=== PATIENT | male | born 2000 | race Caucasian/White ===

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

== ENCOUNTER 2018-02-03 10:50 | Emergency (ER) | payer SELFPAY ==
[2018-02-03 10:59] VITALS: TEMP 98.7
[2018-02-03] MEDS ORDERED: ALPRAZolam 0.25 MG TAB PO ONE (11:03)
--- NOTE | 2018-02-03 11:59 | ED.PDOC ---
History of Present Illness - General Chief Complaint: General Stated Complaint: Increased work of breathing, chest discomfort Time Seen by Provider: 02/03/18 11:01 Source: patient Exam Limitations: no limitations - History of Present Illness Initial Comments: Patient presents with shaking, dyspnea, and chest pain. He does not have a cardiac history or asthma. He says that his fiancee left him yesterday and took the kids. He has been under a lot of stress lately. This weekend, he drank enough alcohol to pass out. He denies using recreational drugs but he does smoke cigarettes. He denies having a history of seizures or syncope but says that he has "passed out" three times in the last two days. He was at work this morning when the shaking started. No other complaints. Timing/Duration: 1-3 hours Severity: moderate Improving Factors: nothing Worsening Factors: nothing Associated Symptoms: syncope Allergies/Adverse Reactions: Allergies NO KNOWN ALLERGY Allergy (Verified 02/03/18 10:59) Review of Systems - Review of Systems Constitutional: States: no symptoms reported EENTM: States: no symptoms reported Respiratory: States: see HPI Cardiology: States: no symptoms reported Gastrointestinal/Abdominal: States: no symptoms reported Genitourinary: States: no symptoms reported Musculoskeletal: States: no symptoms reported Skin: States: no symptoms reported Neurological: States: see HPI Endocrine: States: no symptoms reported Hematologic/Lymphatic: States: no symptoms reported Past Medical History (General) - Patient Medical History Hx Seizures: No Hx Stroke: No Hx Dementia: No Hx Asthma: No Hx of COPD: No Hx Cardiac Disorders: No Hx Congestive Heart Failure: No Hx Pacemaker: No Hx Hypertension: No Hx Thyroid Disease: No Hx Diabetes: No Hx Gastroesophageal Reflux: No Hx Renal Disease: No Hx of HIV: No Hx MRSA: No Surgical History: tonsillectomy - Vaccination History Hx Influenza Vaccination: No Hx Pneumococcal Vaccination: No - Social History Hx Tobacco Use: Yes Hx Substance Use: Yes Family Medical History - Family History Mother Family History: Unknown Living Status: Still Living Physical Exam - Physical Exam General Appearance: Alert Eye Exam: bilateral normal Ears, Nose, Throat: normal ENT inspection Neck: non-tender, full range of motion, supple Respiratory: chest non-tender, lungs clear, normal breath sounds Cardiovascular/Chest: normal peripheral pulses, regular rate, rhythm, no edema Gastrointestinal/Abdominal: normal bowel sounds, non tender, soft Back Exam: normal inspection, no CVA tenderness Extremity: normal range of motion, non-tender, normal inspection Neurologic: outpatient surgery rn II-XII nml as tested, alert, normal mood/affect, oriented x 3, other - Patient has no motor nor sensory deficits except he feels that he has sensation better on the right than on the left foot upon my exam Skin Exam: normal color Lymphatic: no adenopathy Progress - Progress Progress: 02/03/18 13:08 Laboratory Tests 02/03/18 02/03/18 11:00 11:00 WBC 7.9 RBC 5.11 Hgb 15.2 Hct 43.9 MCV 86.0 MCH 29.7 MCHC 34.5 RDW 13.2 Plt Count 266 MPV 7.6 Absolute Neuts (auto) 5.10 Absolute Lymphs (auto) 2.00 Absolute Monos (auto) 0.60 Absolute Eos (auto) 0.00 Absolute Basos (auto) 0.10 Neutrophils % 64.9 Lymphocytes % 25.9 Monocytes % 7.9 Eosinophils % 0.6 L Basophils % 0.7 Sodium 138 Potassium 3.2 L Chloride 104 Carbon Dioxide 23 Anion Gap 14.2 BUN 12 Creatinine 0.94 BUN/Creatinine Ratio 12.8 Random Glucose 100 Serum Osmolality 275.5 Calcium 10.0 Total Bilirubin 0.6 AST 32 ALT 17 Alkaline Phosphatase 72 L Serum Total Protein 7.8 Albumin 4.9 Globulin 2.9 Albumin/Globulin Ratio 1.7 TSH 1.16 Thyroxine (T4) 8.70 Patient was given Xanax 0.5 mg po x one and calmed down significantly. Labs unremarkable. He was given a Banana bag x one for nutritional purposes. The staff spoke with his fiancee and it appeared that his episodes where he passed out was syncope and not a seizure as he had no unusual movements of the head or extremities and was only out for about 30 seconds. He came to completely lucid. He is currently getting psychosocial help. He denies suicidial or homicidal ideation. Patient was discharged with instructions to see his therapist as scheduled. - EKG/XRAY/CT CT Ordered: No CT Interpretation Call Back: No Departure - Departure Clinical Impression: Anxiety, Stress and adjustment reaction Disposition: Discharge to Home or Self Care Condition: Good Departure Forms: ED Discharge - Pt. Copy, Patient Portal Self Enrollment Diet: resume usual diet Activity: increase activity as tolerated Additional Instructions: Return to the E.R. if you feel the desire to hurt yourself or others. Today, you were given Xanax which is a benzodiazapine and it will show up on your urine drug test as that. See your regular counselor as scheduled.
[2018-02-03] MEDS ORDERED: POTASSIUM CHLORIDE 20 MEQ TAB PO ONE (12:01)
[2018-02-03] MEDS ORDERED: THIAMINE HCL INJ 100 MG/ML VIAL ONE ×2 (12:10→12:12)
[2018-02-03] MEDS ORDERED: MULTIPLE VITAMIN 10 ML VIAL ONE (12:12)
[2018-02-03] MEDS ORDERED: SODIUM CHLORIDE 0.9% 1000ML 1,000 ML ONE (12:12)
[2018-02-03] MEDS ORDERED: MULTIPLE VITAMIN INJ 10 ML, THIAMINE HCL INJ 100 MG in SODIUM CHLORIDE 0.9% 1000ML 1,00... IVS SCH (12:30)
[2018-02-03 13:20] VITALS: BP 127/54; O2SAT 98
== END 2018-02-03 13:21 | disposition home or self-care (01) ==
LOC: ER 10:50
DX: F41.9 Anxiety disorder, unspecified (principal); F43.9 Reaction to severe stress, unspecified; R07.9 Chest pain, unspecified; R55 Syncope and collapse; F17.210 Nicotine dependence, cigarettes, uncomplicated
CPT/HCPCS: 36415; 80053; 84436; 84443; 85025; J3411; J7030

== ENCOUNTER 2018-05-09 18:12 | Emergency (ER) | payer SELFPAY ==
[2018-05-09 18:23] VITALS: TEMP 99
[2018-05-09] MEDS ORDERED: cefTRIAXone SODIUM 1 GM in SODIUM CHL 0.9% 50ML MIN-BAG+ 50 ML IVPB ONE (18:26)
[2018-05-09] MEDS ORDERED: IPRATROPIUM/ALBUTEROL 3 ML VIAL NEB ONE (18:26)
--- NOTE | 2018-05-09 18:31 | ED.PDOC ---
History of Present Illness - General Chief Complaint: Respiratory Problem Stated Complaint: cough, congestion Time Seen by Provider: 05/09/18 18:25 Source: patient, EMS Exam Limitations: no limitations - History of Present Illness Initial Comments: patient comes in today via EMS for left-sided chest pain. Patient states he's been sick with cough and cold symptoms for the past 2 weeks. It has persistently worsened and now he is having some wheezing and left-sided chest pain. The first episode of chest pain happened a couple of days ago and was sharp, worse with deep inspiration, and lasted approximately 30 minutes to an hour. Patient states at that time his mom checked his blood pressure and the bottom number was very elevated to the point where the machine said he should go to the emergency room. Today patient had a similar feeling with sharp shooting chest pain on the left side of his chest wall that made him call 911 and the pain remains at this time. Patient states it's much worse with cough or deep inspiration. Patient has been having cough that is nonproductive. He' s had some subjective fever and chills. He has always been healthy and has no known cardiac history. Patient states he does smoke and has smoked since he was about 8 years old. 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 Patient has no known drug allergies. Patient smokes half a pack every couple of days. She has no family history of early cardiac disease although he is not sure how old his grandfather was when he began having strokes. Timing/Duration: getting worse Severity: moderate Activities at Onset: rest Possible Cause: other - see HPI Improving Factors: nothing Worsening Factors: other - cough and deep inspiration Associated Symptoms: chest pain, cough, fever, wheezing Respiratory Risk Factors: no cause identified Allergies/Adverse Reactions: Allergies NO KNOWN ALLERGY Allergy (Verified 02/03/18 10:59) Home Medications: Ambulatory Orders Albuterol Sulfate [Ventolin Hfa] 108 mcg IN TID #1 aer 05/09/18 Azithromycin [Zithromax Z-Dawit] 250 mg PO DAILY #6 tab 05/09/18 Review of Systems - Review of Systems Constitutional: States: chills, fever, weakness EENTM: States: nose pain, nose congestion. Denies: throat pain Respiratory: States: cough, short of breath, wheezing Cardiology: States: chest pain. Denies: edema, palpitations Gastrointestinal/Abdominal: States: no symptoms reported. Denies: abdominal pain, diarrhea, nausea, vomiting Genitourinary: States: no symptoms reported Musculoskeletal: States: no symptoms reported Skin: States: no symptoms reported Neurological: States: no symptoms reported Past Medical History (General) - Patient Medical History Hx Seizures: No Hx Stroke: No Hx Dementia: No Hx Asthma: No Hx of COPD: No Hx Cardiac Disorders: No Hx Congestive Heart Failure: No Hx Pacemaker: No Hx Hypertension: No Hx Thyroid Disease: No Hx Diabetes: No Hx Gastroesophageal Reflux: No Hx Renal Disease: No Hx of HIV: No Hx MRSA: No - Vaccination History Hx Influenza Vaccination: No Hx Pneumococcal Vaccination: No - Social History Hx Tobacco Use: Yes Hx Substance Use: Yes Family Medical History - Family History Mother Family History: Unknown Living Status: Still Living Physical Exam - Physical Exam General Appearance: Alert, Anxious, No apparent distress Eyes, Ears, Nose, Throat Exam: PERRL/EOMI, normal ENT inspection, TMs normal, pharyngeal erythema Neck: non-tender, full range of motion, supple, normal inspection Respiratory: crackles - L base with scattered wheezes and rhonchi in all lung hickey Cardiovascular/Chest: normal peripheral pulses, regular rate, rhythm, no edema, no gallop, no JVD, no murmur Gastrointestinal/Abdominal: normal bowel sounds, non tender, soft Extremity: non-tender Neurologic: alert, oriented x 3 Progress - Progress Progress: 05/09/18 19:43 patient has small crackles that remain after treatment in the LLL but no wheezes. discussed results and clinical picture is consistent with LLL pneumonia. Still early with normal O2 sats and blood work reassuring. Discussed to return to ER for worsening SOB, chest pain, failure to improve. - Results/Orders Results/Orders: 05/09/18 18:30 EKG STAT Laboratory Results WBC 14.5 K/mm3 (4.8-10.8) H 05/09/18 18:55 RBC 5.80 M/mm3 (4.70-6.10) 05/09/18 18:55 Hgb 17.2 gm/dL (14.0-18.0) 05/09/18 18:55 Hct 51.0 % (42.0-52.0) 05/09/18 18:55 MCV 87.8 fl (80.0-94.0) 05/09/18 18:55 MCH 29.7 pg (27.0-31.0) 05/09/18 18:55 MCHC 33.8 g/dL (33.0-37.0) 05/09/18 18:55 RDW 13.8 % (11.5-14.5) 05/09/18 18:55 Plt Count 325 K/mm3 (130-400) 05/09/18 18:55 MPV 7.4 fl (7.40-10.4) 05/09/18 18:55 Absolute Neuts (auto) 11.50 K/uL (1.8-6.8) H 05/09/18 18:55 Absolute Lymphs (auto) 2.00 K/uL (1.0-3.4) 05/09/18 18:55 Absolute Monos (auto) 0.80 K/uL (0.2-0.8) 05/09/18 18:55 Absolute Eos (auto) 0.10 K/uL (0.0-0.4) 05/09/18 18:55 Absolute Basos (auto) 0.10 K/uL (0.0-0.1) 05/09/18 18:55 Neutrophils % 79.6 % (42.0-78.0) H 05/09/18 18:55 Lymphocytes % 14.1 % (20.0-50.0) L 05/09/18 18:55 Monocytes % 5.5 % (2.0-9.0) 05/09/18 18:55 Eosinophils % 0.4 % (1.0-5.0) L 05/09/18 18:55 Basophils % 0.4 % (0.0-2.0) 05/09/18 18:55 Sodium 142 mmol/L (135-145) 05/09/18 18:55 Potassium 3.5 mmol/L (3.6-5.0) L 05/09/18 18:55 Chloride 105 mmol/L (101-111) 05/09/18 18:55 Carbon Dioxide 27 mmol/L (21-31) 05/09/18 18:55 Anion Gap 13.5 (12-18) 05/09/18 18:55 BUN 16 mg/dL (7-18) 05/09/18 18:55 Creatinine 0.83 mg/dL (0.6-1.3) 05/09/18 18:55 BUN/Creatinine Ratio 19.3 (10-20) 05/09/18 18:55 Random Glucose 82 mg/dL (70-105) 05/09/18 18:55 Serum Osmolality 283.4 mOsm/L (275-295) 05/09/18 18:55 Calcium 10.2 mg/dL (8.4-10.2) 05/09/18 18:55 Total Bilirubin 0.7 mg/dL (0.2-1.0) 05/09/18 18:55 AST 20 IU/L (10-42) 05/09/18 18:55 ALT 11 IU/L (10-60) 05/09/18 18:55 Alkaline Phosphatase 103 IU/L (180-700) L 05/09/18 18:55 Serum Total Protein 8.3 gm/dL (6.4-8.2) H 05/09/18 18:55 Albumin 5.2 g/dl (3.2-5.5) 05/09/18 18:55 Globulin 3.1 gm/dL (2.3-3.5) 05/09/18 18:55 Albumin/Globulin Ratio 1.7 (1.1-1.9) 05/09/18 18:55 Patient Name: PRISCA GASPAR Gender: Male Date of : 2000 Referring Physician: RICKY QUINTERO Organization: [facility] Accession Number: [id number] Requested Date: May 09, 2018 18:26 Report Status: Final Requested Procedure: 1 Procedure Description: Chest,2 Views Modality: CR Findings Reporting MD: Flip Weaver Fellow MD: Not available Dictation Time: Cherry Sorter: Not available Retail Inventory Control Clerk Date: EXAM DESCRIPTION: Chest,2 Views CLINICAL HISTORY: 17 years Male, chest pain ?LLL pneumonia COMPARISON: None. FINDINGS: Heart size and mediastinal and hilar structures appear within normal limits. The lungs appear somewhat hyperinflated. Slightly increased markings are noted in the left lung base compared to the right side. The lungs appear otherwise clear. There is no evidence of pleural effusion or pneumothorax. Regional bony structures appear intact as visualized. IMPRESSION: Findings consistent with mild interstitial pneumonitis in the left lower lobe. Follow-up is suggested. - EKG/XRAY/CT EKG: Sinus, no ST T wave changes Comments: rightward axis with HR ?right ventricular conduction delay Departure - Departure Clinical Impression: Pneumonia Qualifiers: Pneumonia type: due to unspecified organism Laterality: left Lung location: lower lobe of lung Qualified Code(s): J18.1 - Lobar pneumonia, unspecified organism Disposition: Discharge to Home or Self Care Condition: Fair Departure Forms: ED Discharge - Pt. Copy, Patient Portal Self Enrollment Instructions: DI for Pneumonia -- Adult, Pleuritic Chest Pain Diet: regular diet Activity: walking as tolerated Prescriptions: Albuterol Sulfate [Ventolin Hfa] 108 mcg IN TID #1 aer Azithromycin [Zithromax Z-Dawit] 250 mg PO DAILY #6 tab Home Medications: Ambulatory Orders Albuterol Sulfate [Ventolin Hfa] 108 mcg IN TID #1 aer 05/09/18 Azithromycin [Zithromax Z-Dawit] 250 mg PO DAILY #6 tab 05/09/18 Additional Instructions: patient has pleuritic chest pain from early Left lower lobe pneumonia. IBU OTC 800 mg three times a day can be used for pain. Stop smoking and take inhaler and antibiotics as prescribed. Patient should follow up on Friday in clinic to recheck. Return to ER for increased shortness of breath or worsening symptoms.
--- NOTE | 2018-05-09 18:54 | RAD ---
EXAM DESCRIPTION: Chest,2 Views CLINICAL HISTORY: 17 years Male, chest pain ?LLL pneumonia COMPARISON: None. FINDINGS: Heart size and mediastinal and hilar structures appear within normal limits. The lungs appear somewhat hyperinflated. Slightly increased markings are noted in the left lung base compared to the right side. The lungs appear otherwise clear. There is no evidence of pleural effusion or pneumothorax. Regional bony structures appear intact as visualized. IMPRESSION: Findings consistent with mild interstitial pneumonitis in the left lower lobe. Follow-up is suggested. Electronically signed by: Flip Weaver MD 05/09/2018 6:53 PM [facility]
[2018-05-09] MEDS ORDERED: SODIUM CHL 0.9% 50ML MIN-BAG+ 50 ML IVPB ONE (19:19)
[2018-05-09] MEDS ORDERED: cefTRIAXone SODIUM 1 GM VIAL ONE (19:19)
[2018-05-09] MEDS ORDERED: KETOROLAC TROMETHAMINE INJ 30 MG/ML VIAL IV ONE (19:24)
[2018-05-09 20:02] VITALS: BP 124/66; O2SAT 98
== END 2018-05-09 20:02 | disposition home or self-care (01) ==
LOC: ER 18:12
DX: J18.9 Pneumonia, unspecified organism (principal); F17.210 Nicotine dependence, cigarettes, uncomplicated
CPT/HCPCS: 36415; 71046; 80053; 85025; 93005; 94640; 99406; J0696; J1885; J7050; J7620

== ENCOUNTER 2018-06-27 08:24 | Emergency (ER) | payer SELFPAY ==
[2018-06-27 08:44] VITALS: TEMP 97.6
--- NOTE | 2018-06-27 09:33 | ED.PDOC ---
History of Present Illness - General Chief Complaint: Headache Time Seen by Provider: 06/27/18 09:23 Source: patient Exam Limitations: no limitations - History of Present Illness Initial Comments: Patient presents with a headache for two weeks. It is intermittent, left sided, located at the occiput and radiates to the left ear, throbbing in nature, no associated symptoms. He has a history of left molar pain but says they are not hurting. He has had headaches like this before but not that have lasted so long. No other complaints. Timing/Duration: other - two weeks Severity: moderate Improving Factors: nothing Worsening Factors: nothing Associated Symptoms: denies symptoms Allergies/Adverse Reactions: Allergies NO KNOWN ALLERGY Allergy (Verified 05/18/18 09:06) Home Medications: Ambulatory Orders Ibuprofen [Motrin Tab] 600 mg PO TID PRN #15 tab 11/10/15 Review of Systems - Review of Systems Constitutional: States: no symptoms reported EENTM: States: no symptoms reported Respiratory: States: no symptoms reported Cardiology: States: no symptoms reported Gastrointestinal/Abdominal: States: no symptoms reported Genitourinary: States: no symptoms reported Musculoskeletal: States: no symptoms reported Skin: States: no symptoms reported Neurological: States: see HPI Endocrine: States: no symptoms reported Hematologic/Lymphatic: States: no symptoms reported Past Medical History (General) - Patient Medical History Hx Seizures: No Hx Stroke: No Hx Dementia: No Hx Asthma: No Hx of COPD: No Hx Cardiac Disorders: No Hx Congestive Heart Failure: No Hx Pacemaker: No Hx Hypertension: No Hx Thyroid Disease: No Hx Diabetes: No Hx Gastroesophageal Reflux: No Hx Renal Disease: No Hx of HIV: No Hx MRSA: No Surgical History: tonsillectomy - Vaccination History Hx Influenza Vaccination: No Hx Pneumococcal Vaccination: No - Social History Hx Tobacco Use: Yes Hx Substance Use: Yes Family Medical History - Family History Mother Family History: No Known Living Status: Still Living Physical Exam - Physical Exam General Appearance: Alert Eye Exam: bilateral normal, bilateral other - fundoscopic exam normal. Optic disc sharp without blurring. Ears, Nose, Throat: normal ENT inspection Neck: non-tender, full range of motion, supple Respiratory: lungs clear, normal breath sounds Cardiovascular/Chest: normal peripheral pulses, regular rate, rhythm, no edema Gastrointestinal/Abdominal: normal bowel sounds, non tender, soft Extremity: normal range of motion, non-tender, normal inspection Neurologic: copy cutter II-XII nml as tested, no motor/sensory deficits, alert, normal mood/affect, oriented x 3, other - Cerebellar tests wnl. Skin Exam: normal color Lymphatic: no adenopathy Progress - Progress Progress: 06/27/18 09:34 Neurological exam is completely normal. No indication for a CT at this time. Toradol 30 mg and phenergan 25 mg IM given. Laboratory Tests 06/27/18 06/27/18 06/27/18 08:41 08:45 08:45 WBC 11.3 H RBC 5.53 Hgb 16.5 Hct 49.1 MCV 88.8 MCH 29.8 MCHC 33.6 RDW 13.7 Plt Count 234 MPV 7.3 L Absolute Neuts (auto) 8.60 H Absolute Lymphs (auto) 1.50 Absolute Monos (auto) 0.90 H Absolute Eos (auto) 0.20 Absolute Basos (auto) 0.10 Neutrophils % 76.3 Lymphocytes % 13.1 L Monocytes % 8.0 Eosinophils % 2.0 Basophils % 0.6 Sodium 139 Potassium 3.8 Chloride 104 Carbon Dioxide 27 Anion Gap 11.8 L BUN 10 Creatinine 0.72 BUN/Creatinine Ratio 13.9 Random Glucose 100 Serum Osmolality 276.7 Calcium 9.2 Total Bilirubin 0.2 AST 18 ALT 12 Alkaline Phosphatase 73 L Serum Total Protein 7.4 Albumin 4.4 Globulin 3.0 Albumin/Globulin Ratio 1.5 Urine Color Yellow Urine Appearance Clear Urine pH 6.5 Ur Specific [place] 1.020 Urine Protein Negative Urine Glucose (UA) Negative Urine Ketones Negative Urine Blood Small H Urine Nitrite Negative Urine Bilirubin Negative Urine Urobilinogen 0.2 Ur Leukocyte Esterase Negative Urine RBC 3-5 H Urine WBC 0 Ur Epithelial Cells 0 Urine Bacteria 0 Urine Opiates Screen Urine Barbiturates Ur Phencyclidine Scrn U Amphetamin/Meth Scrn U Benzodiazepines Scrn U Cocaine Metab Screen U Cannabinoids Screen 06/27/18 08:45 WBC RBC Hgb Hct MCV MCH MCHC RDW Plt Count MPV Absolute Neuts (auto) Absolute Lymphs (auto) Absolute Monos (auto) Absolute Eos (auto) Absolute Basos (auto) Neutrophils % Lymphocytes % Monocytes % Eosinophils % Basophils % Sodium Potassium Chloride Carbon Dioxide Anion Gap BUN Creatinine BUN/Creatinine Ratio Random Glucose Serum Osmolality Calcium Total Bilirubin AST ALT Alkaline Phosphatase Serum Total Protein Albumin Globulin Albumin/Globulin Ratio Urine Color Urine Appearance Urine pH Ur Specific [place] Urine Protein Urine Glucose (UA) Urine Ketones Urine Blood Urine Nitrite Urine Bilirubin Urine Urobilinogen Ur Leukocyte Esterase Urine RBC Urine WBC Ur Epithelial Cells Urine Bacteria Urine Opiates Screen Negative Urine Barbiturates Negative Ur Phencyclidine Scrn Negative U Amphetamin/Meth Scrn Negative U Benzodiazepines Scrn Negative U Cocaine Metab Screen Negative U Cannabinoids Screen Positive H Care instructions given. E.R. warnings given. Questions were elicited and answered. Patient voiced understanding and agreement with the plan. 06/27/18 09:35 Departure - Departure Clinical Impression: Headache Disposition: Discharge to Home or Self Care Condition: Good Departure Forms: ED Discharge - Pt. Copy, Patient Portal Self Enrollment Instructions: DI for Headache Diet: resume usual diet Activity: increase activity as tolerated Home Medications: Ambulatory Orders Ibuprofen [Motrin Tab] 600 mg PO TID PRN #15 tab 11/10/15 Additional Instructions: If headache returns, see your regular doctor about possible prophylactic medications. Return to the E.R. if symptoms worsen.
[2018-06-27] MEDS ORDERED: KETOROLAC TROMETHAMINE INJ 30 MG/ML VIAL IM ONE (09:34)
[2018-06-27] MEDS ORDERED: PROMETHAZINE HCL INJ 25 MG/ML VIAL IM ONE (09:35)
[2018-06-27 09:36] VITALS: BP 117/74
[2018-06-27 10:15] VITALS: O2SAT 97
== END 2018-06-27 10:00 | disposition home or self-care (01) ==
LOC: ER 08:24
DX: R51 Headache (principal); Z87.891 Personal history of nicotine dependence
CPT/HCPCS: 36415; 80053; 80307; 81001; 85025; J1885; J2550

== ENCOUNTER 2018-06-28 00:38 | Emergency (ER) | payer SELFPAY ==
[2018-06-28] MEDS ORDERED: SUMAtriptan SUCCINATE INJ 6 MG/0.5 ML VIAL SUBCU ONE (01:01)
--- NOTE | 2018-06-28 01:12 | ED.PDOC ---
History of Present Illness - General Chief Complaint: Headache Stated Complaint: headache Time Seen by Provider: 06/28/18 00:58 Source: patient Exam Limitations: no limitations - History of Present Illness Initial Comments: Patient presents with a headache for the second time in three days. Before his initial presentation, it was a daily occurrence for two weeks. It is left sided, occipital with radiation to the left ear, throbbing in nature, constant but intermittent in intensity. Today he says that he has had headaches before but none like this one. Has had some sinus congestion and nausea. He says that recently he has had vision changes upon standing. His vision will "black out" for several seconds. He occasionally gets left sided tingling and numbness in his left arm and leg but that only happens while reclining and it is unpredictable. No other symptoms or complaints. He was treated successfully with toradol and phenergan two nights ago. The headache resolved for 24 hours then recurred at 21:00 last night. Timing/Duration: other - 2 weeks Severity: moderate Improving Factors: nothing Worsening Factors: nothing Associated Symptoms: other - see HPI Allergies/Adverse Reactions: Allergies NO KNOWN ALLERGY Allergy (Verified 05/18/18 09:06) Home Medications: Ambulatory Orders Ibuprofen [Motrin Tab] 600 mg PO TID PRN #15 tab 11/10/15 Amoxicillin & Pot Clavulanate [Augmentin Tab] 875 mg PO BID #20 tab 06/28/18 Prednisone [Deltasone] 20 mg PO DAILY #5 tab 06/28/18 Sumatriptan [Imitrex] 25 mg PO ONCE PRN #7 ml 06/28/18 Review of Systems - Review of Systems Constitutional: States: no symptoms reported EENTM: States: see HPI Respiratory: States: no symptoms reported Cardiology: States: no symptoms reported Gastrointestinal/Abdominal: States: no symptoms reported Genitourinary: States: no symptoms reported Musculoskeletal: States: no symptoms reported Skin: States: no symptoms reported Neurological: States: see HPI Endocrine: States: no symptoms reported Hematologic/Lymphatic: States: no symptoms reported Past Medical History (General) - Patient Medical History Hx Seizures: No Hx Stroke: No Hx Dementia: No Hx Asthma: No Hx of COPD: No Hx Cardiac Disorders: No Hx Congestive Heart Failure: No Hx Pacemaker: No Hx Hypertension: No Hx Thyroid Disease: No Hx Diabetes: No Hx Gastroesophageal Reflux: No Hx Renal Disease: No Hx of HIV: No Hx MRSA: No Surgical History: tonsillectomy - Vaccination History Hx Influenza Vaccination: No Hx Pneumococcal Vaccination: No - Social History Hx Tobacco Use: Yes Hx Substance Use: Yes Family Medical History - Family History Mother Family History: No Known Living Status: Still Living Physical Exam - Physical Exam General Appearance: Alert Eye Exam: bilateral normal Ears, Nose, Throat: normal ENT inspection Neck: non-tender, full range of motion, supple Respiratory: lungs clear, normal breath sounds Cardiovascular/Chest: normal peripheral pulses, regular rate, rhythm Gastrointestinal/Abdominal: normal bowel sounds, non tender, soft Back Exam: normal inspection, no CVA tenderness Extremity: normal range of motion, non-tender, normal inspection 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 No masses. CT sinuses showed right and left maxillary sinus disease. The patient's headache resolved with sumatryptan 6 mg SQ x one. Patient was given augmentin 875 bid x 10 days for the sinus disease as well as prednisone 20 mg x 5 days. Also, RX for sumatryptan. E.R. warnings given. Care instructions given. Questions were elicited and answered. The patient voiced understanding and agreement with the plan. Departure - Departure Clinical Impression: Headache, Sinusitis Disposition: Discharge to Home or Self Care Condition: Good Departure Forms: ED Discharge - Pt. Copy, Patient Portal Self Enrollment Instructions: DI for Headache Diet: resume usual diet Activity: increase activity as tolerated Prescriptions: Amoxicillin & Pot Clavulanate [Augmentin Tab] 875 mg PO BID #20 tab Prednisone [Deltasone] 20 mg PO DAILY #5 tab Sumatriptan [Imitrex] 25 mg PO ONCE PRN #7 ml PRN Reason: Headache/Migraine Pain Home Medications: Ambulatory Orders Ibuprofen [Motrin Tab] 600 mg PO TID PRN #15 tab 11/10/15 Amoxicillin & Pot Clavulanate [Augmentin Tab] 875 mg PO BID #20 tab 06/28/18 Prednisone [Deltasone] 20 mg PO DAILY #5 tab 06/28/18 Sumatriptan [Imitrex] 25 mg PO ONCE PRN #7 ml 06/28/18 Additional Instructions: Take medications as prescribed. See a family medicine doctor for further headache prevention.
--- NOTE | 2018-06-28 01:37 | CT ---
CT face and sinuses without contrast on 06/28/2018 CLINICAL INDICATION: Headache TECHNIQUE: Multiple axial images are obtained throughout the face/sinuses without the administration of contrast. Sagittal and coronal reformatted images are also performed and reviewed. This exam was performed according to our departmental dose-optimization program, which includes automated exposure control, adjustment of the mA and/or kV according to patient size and/or use of iterative reconstruction technique. Total DLP is 315.93 mGy*cm. COMPARISON: None FINDINGS: Right greater than left maxillary sinus disease is noted with near complete opacification of the right maxillary sinus. There is also mild ethmoid sinus disease. The paranasal sinuses are otherwise clear. There is mild nasal septal deviation to the left. Reformatted images reveal normal appearance of the orbital floors and orbital roofs. There are no acute fracture lines. The right maxillary sinus ostiomeatal unit is occluded by the mucosal disease in the left is significantly narrowed. No other bony or soft tissue abnormality is noted. IMPRESSION: Sinus disease as above much greater in the right maxillary sinus. Electronically signed by: Soren Barnes 06/28/2018 1:36 AM [facility]
--- NOTE | 2018-06-28 01:37 | CT ---
CT HEAD WITHOUT CONTRAST 06/28/2018 CLINICAL HISTORY: Worst headache of life for two weeks COMPARISON: [ None.] TECHNIQUE: Axial 2.[address] imaging of the brain. Reformatted coronal and sagittal images obtained. This examination was performed according to our departmental dose optimization program, which includes automated exposure control, adjustment of the mA and/or kV according to patient size and/or use of iterative reconstruction technique. FINDINGS: Ventricles and extra-axial fluid spaces are normal. Phelan-white matter differentiation is preserved. There is no intracranial hemorrhage. There is no mass or midline shift. No large territorial acute infarction evident. Normal cerebellum and vermis. No cerebellar tonsillar ectopia. Fourth ventricle is midline. Normal appearance of the globes and remaining intraorbital contents. There is mild mucosal thickening throughout the ethmoid air cells. There is significant mucosal thickening within the right maxillary antrum. Mild left maxillary antral mucosal thickening. Mastoid air cells are clear bilaterally. Imaged facial bones, skull base and calvarium appear normal. IMPRESSION: 1. No intracranial acute finding. 2. Sinus mucosal disease, significant within the right maxillary antrum. Electronically signed by: Marily Hilario DO 06/28/2018 1:35 AM [employer]
[2018-06-28 03:26] VITALS: BP 114/68; TEMP 97; O2SAT 96
== END 2018-06-28 03:26 | disposition home or self-care (01) ==
LOC: ER 00:38
DX: J32.0 Chronic maxillary sinusitis (principal); R51 Headache; R11.0 Nausea; Z87.891 Personal history of nicotine dependence
CPT/HCPCS: 36415; 70450; 70486; 80053; 84436; 84443; 85025; J3030

== ENCOUNTER 2018-08-13 21:55 | Emergency (ER) | payer SELFPAY ==
[2018-08-13 22:18] VITALS: TEMP 97.7
--- NOTE | 2018-08-13 22:18 | RAD ---
EXAM: Chest,1 View CLINICAL INDICATION: Cough COMPARISON: 05/09/2018 FINDINGS: A single view of the chest was obtained. The heart size is normal. The pulmonary vascularity is unremarkable. The lungs are clear. There is no consolidation, infiltrate, pleural effusion, or pneumothorax. IMPRESSION: No evidence of active pulmonary disease. Electronically signed by: Matias Palomino MD 08/13/2018 10:15 PM CDT
--- NOTE | 2018-08-13 22:21 | ED.PDOC ---
History of Present Illness - General Chief Complaint: Respiratory Problem Stated Complaint: cough, chest discomfort Time Seen by Provider: 08/13/18 22:14 Exam Limitations: no limitations - History of Present Illness Comments: Jim Hilario17 y/o male stated that he has left sided pleuritic chest pains during coughing episodes the last 3 days.No fever/chills or SOB.Denies asthma. Timing/Duration: getting worse, other - 3 days Cough Quality/Degree: dry cough Possible Cause: occasional episodes Improving Factors: nothing Worsening Factors: nothing Associated Symptoms: nasal congestion Allergies/Adverse Reactions: Allergies NO KNOWN ALLERGY Allergy (Verified 05/18/18 09:06) Home Medications: Ambulatory Orders Ibuprofen [Motrin Tab] 600 mg PO TID PRN #15 tab 11/10/15 Amoxicillin & Pot Clavulanate [Augmentin Tab] 875 mg PO BID #20 tab 06/28/18 Prednisone [Deltasone] 20 mg PO DAILY #5 tab 06/28/18 Sumatriptan [Imitrex] 25 mg PO ONCE PRN #7 ml 06/28/18 Benzonatate Perles [Tessalon Perles] 200 mg PO BID #20 cap 08/13/18 Cefuroxime Axetil [Ceftin] 500 mg PO Q12H 7 Days #14 tablet 08/13/18 Review of Systems - Review of Systems Constitutional: States: no symptoms reported EENTM: States: no symptoms reported Respiratory: States: see HPI Cardiology: States: no symptoms reported Gastrointestinal/Abdominal: States: no symptoms reported Genitourinary: States: no symptoms reported Musculoskeletal: States: no symptoms reported All other Systems: Reviewed and Negative, No Change from Baseline Past Medical History (General) - Patient Medical History Hx Seizures: No Hx Stroke: No Hx Dementia: No Hx Asthma: No Hx of COPD: No Hx Cardiac Disorders: No Hx Congestive Heart Failure: No Hx Pacemaker: No Hx Hypertension: No Hx Thyroid Disease: No Hx Diabetes: No Hx Gastroesophageal Reflux: No Hx Renal Disease: No Hx Cancer: No Hx of HIV: No Hx Hepatitis C: No Hx MRSA: No Surgical History: tonsillectomy - Vaccination History Hx Tetanus, Diphtheria Vaccination: No Hx Influenza Vaccination: No Hx Pneumococcal Vaccination: No - Social History Hx Tobacco Use: Yes Cigarettes Packs Per Day: 7 Hx Alcohol Use: Yes Hx Substance Use: Yes Family Medical History - Family History Mother Family History: No Known Living Status: Still Living Physical Exam - Physical Exam General Appearance: Alert, Comfortable, No apparent distress ENT Exam: normal ENT inspection, hearing grossly normal, nasal congestion Neck: supple, trachea midline Respiratory: lungs clear, normal breath sounds, no respiratory distress Cardiovascular/Chest: normal peripheral pulses, regular rate, rhythm, no murmur Gastrointestinal/Abdominal: non tender, soft, no organomegaly Extremity: no pedal edema, no calf tenderness Neurologic: alert, oriented x 3 Skin Exam: normal color, warm/dry Lymphatic: no adenopathy Progress - Progress Progress: 08/13/18 23:00 Vital Signs - 8 hr 08/13/18 08/13/18 22:12 22:18 Temperature 97.7 F Pulse Rate [ 66 left] Respiratory 18 22 Rate Blood Pressure 122/74 [left] O2 Sat by Pulse 100 Oximetry - Results/Orders Results/Orders: Laboratory Results - last 24 hr 08/13/18 22:37 WBC 5.4 RBC 5.17 Hgb 15.7 Hct 47.1 MCV 91.0 MCH 30.3 MCHC 33.3 RDW 14.8 H Plt Count 191 MPV 7.7 Absolute Neuts (auto) 2.40 Absolute Lymphs (auto) 2.20 Absolute Monos (auto) 0.70 Absolute Eos (auto) 0.10 Absolute Basos (auto) 0.10 Neutrophils % 44.0 Lymphocytes % 40.4 Monocytes % 12.1 H Eosinophils % 2.4 Basophils % 1.1 - EKG/XRAY/CT XRAY: chest - no evidence of active pulmonary disease Departure - Departure Clinical Impression: Pleurodynia Upper respiratory tract infection Qualifiers: URI type: unspecified URI Qualified Code(s): J06.9 - Acute upper respiratory infection, unspecified Time of Disposition: 23:02 Disposition: Discharge to Home or Self Care Condition: Fair Departure Forms: ED Discharge - Pt. Copy, Patient Portal Self Enrollment Instructions: Pleuritic Chest Pain (DC), Pleuritic Chest Pain, Quitting Smoking for Teens and Young Adults, Quitting Smoking, Smoking: Not Just Harmful to Your Lungs and Heart Prescriptions: Benzonatate Perles [Tessalon Perles] 200 mg PO BID #20 cap Cefuroxime Axetil [Ceftin] 500 mg PO Q12H 7 Days #14 tablet Home Medications: Ambulatory Orders Ibuprofen [Motrin Tab] 600 mg PO TID PRN #15 tab 11/10/15 Amoxicillin & Pot Clavulanate [Augmentin Tab] 875 mg PO BID #20 tab 06/28/18 Prednisone [Deltasone] 20 mg PO DAILY #5 tab 06/28/18 Sumatriptan [Imitrex] 25 mg PO ONCE PRN #7 ml 06/28/18 Benzonatate Perles [Tessalon Perles] 200 mg PO BID #20 cap 08/13/18 Cefuroxime Axetil [Ceftin] 500 mg PO Q12H 7 Days #14 tablet 08/13/18 Additional Instructions: May take over the counter cough/cold medicine as directed on package;Motrin(over the counter) 3-4 tablets 3 x a day for pain.May use Afrin Lytle(over the counter) 2 sprays each nostril am/pm 3 days on 3 days off as needed for nasal congestion;follow up with primary Md 17 Aug 2018 for recheck
[2018-08-13] MEDS ORDERED: BENZONATATE PERLES 100 MG CAP PO ONE (22:54)
[2018-08-13] MEDS ORDERED: KETOROLAC TROMETHAMINE INJ 30 MG/ML VIAL IM ONE (22:54)
[2018-08-13] MEDS ORDERED: diphenhydrAMINE HCL 25 MG CAP PO ONE (22:54)
[2018-08-13] MEDS ORDERED: CEFUROXIME AXETIL TAB 250 MG TAB PO ONE (22:56)
[2018-08-13 23:16] VITALS: BP 118/68; O2SAT 99
== END 2018-08-13 23:16 | disposition home or self-care (01) ==
LOC: ER 21:55
DX: J06.9 Acute upper respiratory infection, unspecified (principal); R07.81 Pleurodynia; F17.210 Nicotine dependence, cigarettes, uncomplicated
CPT/HCPCS: 36415; 71045; 85025; J1885; Q0163

== ENCOUNTER 2019-06-05 02:21 | Emergency (ER) | payer SELFPAY ==
[2019-06-05 02:33] VITALS: BP 136/87; TEMP 97.1; O2SAT 100
--- NOTE | 2019-06-05 02:48 | ED.PDOC ---
History of Present Illness - General Chief Complaint: General Stated Complaint: weak and dizzy Time Seen by Provider: 06/05/19 02:40 Source: patient, RN notes reviewed, Vital Signs reviewed, family - Mother Exam Limitations: no limitations - History of Present Illness Initial Comments: Patient is a 18-year-old white male who presents with complaints of feeling altered and drugged. Patient was at abdominals and had drank half a cup of his iced coffee drink when he noticed a strange taste to it, stinging on his tongue and beginning to feel as if he were stoned. Patient describes it as feeling off and somewhat nauseated.Patient denies any recent drug use. Nothing seems to make this better or worse. He feels off balance. Severity: moderate Improving Factors: nothing Worsening Factors: nothing Associated Symptoms: malaise, nausea/vomiting - Nausea only Allergies/Adverse Reactions: Allergies NO KNOWN ALLERGY Allergy (Verified 05/18/18 09:06) Home Medications: Ambulatory Orders Ibuprofen [Motrin Tab] 600 mg PO TID PRN #15 tab 11/10/15 Amoxicillin & Pot Clavulanate [Augmentin Tab] 875 mg PO BID #20 tab 06/28/18 Prednisone [Deltasone] 20 mg PO DAILY #5 tab 06/28/18 Sumatriptan [Imitrex] 25 mg PO ONCE PRN #7 ml 06/28/18 Benzonatate Perles [Tessalon Perles] 200 mg PO BID #20 cap 08/13/18 Cefuroxime Axetil [Ceftin] 500 mg PO Q12H 7 Days #14 tablet 08/13/18 Review of Systems - Review of Systems Constitutional: States: see HPI, malaise. Denies: chills, fever EENTM: States: see HPI, mouth pain Respiratory: States: no symptoms reported Cardiology: States: no symptoms reported Gastrointestinal/Abdominal: States: see HPI, nausea. Denies: diarrhea, vomiting Genitourinary: States: no symptoms reported Musculoskeletal: States: no symptoms reported Skin: States: no symptoms reported Neurological: States: anxiety Endocrine: States: no symptoms reported Hematologic/Lymphatic: States: no symptoms reported All other Systems: Reviewed and Negative Past Medical History (General) - Patient Medical History Hx Seizures: No Hx Stroke: No Hx Dementia: No Hx Asthma: No Hx of COPD: No Hx Cardiac Disorders: No Hx Congestive Heart Failure: No Hx Pacemaker: No Hx Hypertension: No Hx Thyroid Disease: No Hx Diabetes: No Hx Gastroesophageal Reflux: No Hx Renal Disease: No Hx Cancer: No Hx of HIV: No Hx Hepatitis C: No Hx MRSA: No Surgical History: tonsillectomy - Vaccination History Hx Tetanus, Diphtheria Vaccination: No Hx Influenza Vaccination: No Hx Pneumococcal Vaccination: No - Social History Hx Tobacco Use: Yes Hx Chewing Tobacco Use: No Hx Alcohol Use: No Hx Substance Use: Yes Hx Substance Use Treatment: Yes Hx Depression: No Feels Threatened In Home Enviroment: No Hx Physical Abuse: No Hx Emotional Abuse: No Hx Suspected Abuse: No Family Medical History - Family History Mother Family History: No Known Living Status: Still Living Physical Exam - Physical Exam General Appearance: Alert, Anxious, Comfortable, Well Developed, Well Groomed, Well Hydrated, Well Nourished Eye Exam: bilateral normal, bilateral abnormal EOM Ears, Nose, Throat: hearing grossly normal, normal ENT inspection, normal pharynx Neck: non-tender, full range of motion, supple, normal inspection Respiratory: chest non-tender, lungs clear, normal breath sounds, no respiratory distress, no accessory muscle use, respiratory distress Cardiovascular/Chest: normal peripheral pulses, regular rate, rhythm, no edema, no gallop, no JVD, no murmur Peripheral Pulses: radial,right: 2+, radial,left: 2+ Gastrointestinal/Abdominal: normal bowel sounds, non tender, soft, no organomegaly, no pulsatile mass Back Exam: normal inspection, no CVA tenderness, no vertebral tenderness Extremity: normal range of motion, non-tender, normal inspection 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 06/05/19 03:19 Patient resting comfortably. Results of his urine drug screen were provided to him. I offered to do this privately but he agreed for his mother to stay for this. They had questions as to how amphetamines could be in his system. I did not answer those questions but instead deflected that I could not comment as to how they were there only that they were there. Patient and mother are satisfied with the discussion and are comfortable with discharge home. Plan follow-up with PCP. Sami Solorio M.D. #[id number] - Results/Orders Results/Orders: Laboratory Results - last 24 hr 06/05/19 02:35 Urine Opiates Screen Negative Urine Barbiturates Negative Ur Phencyclidine Scrn Negative U Amphetamin/Meth Scrn Positive H U Benzodiazepines Scrn Negative U Cocaine Metab Screen Negative U Cannabinoids Screen Positive H Departure - Departure Clinical Impression: Methamphetamine intoxication Time of Disposition: 03:21 Disposition: Discharge to Home or Self Care Condition: Good Departure Forms: ED Discharge - Pt. Copy, Patient Portal Self Enrollment Instructions: Methamphetamine, Drug Abuse and Drug Addiction (DC) Home Medications: Ambulatory Orders Ibuprofen [Motrin Tab] 600 mg PO TID PRN #15 tab 11/10/15 Amoxicillin & Pot Clavulanate [Augmentin Tab] 875 mg PO BID #20 tab 06/28/18 Prednisone [Deltasone] 20 mg PO DAILY #5 tab 06/28/18 Sumatriptan [Imitrex] 25 mg PO ONCE PRN #7 ml 06/28/18 Benzonatate Perles [Tessalon Perles] 200 mg PO BID #20 cap 08/13/18 Cefuroxime Axetil [Ceftin] 500 mg PO Q12H 7 Days #14 tablet 08/13/18 Comments: I have recommended to the patient and his mother that they attend Narcotics Anonymous meetings.
[2019-06-05] MEDS ORDERED: diazePAM 5 MG TAB PO ONE (03:23)
[2019-06-05] MEDS ORDERED: ONDANSETRON ODT (ER DISP) 8 MG TAB PO ONE (03:23)
== END 2019-06-05 03:33 | disposition home or self-care (01) ==
LOC: ER 02:21
DX: F15.129 Other stimulant abuse with intoxication, unspecified (principal); Z87.891 Personal history of nicotine dependence

== ENCOUNTER 2019-12-06 03:41 | Emergency (ER) | payer SELFPAY ==
--- NOTE | 2019-12-06 03:58 | ED.PDOC ---
History of Present Illness - General Chief Complaint: General Stated Complaint: burning from heat and cold cream Time Seen by Provider: 12/06/19 03:46 Source: patient Exam Limitations: no limitations - History of Present Illness Initial Comments: The patient is a 19-year-old male presented emergency room secondary to pain on his back where his girlfriend had rubbed a generic icy hot. He had not used this stuff before. The patient additionally may have had a mild sunburn in the area based on the distribution of the redness, before he applied it. He tried washing it off with simply water. No soap was used. It is a menthol base. Timing/Duration: 1-3 hours Severity: severe Improving Factors: nothing Worsening Factors: nothing Associated Symptoms: denies symptoms Allergies/Adverse Reactions: Allergies NO KNOWN ALLERGY Allergy (Verified 05/18/18 09:06) Home Medications: Ambulatory Orders Ibuprofen [Motrin Tab] 600 mg PO TID PRN #15 tab 11/10/15 Amoxicillin & Pot Clavulanate [Augmentin Tab] 875 mg PO BID #20 tab 06/28/18 Prednisone [Deltasone] 20 mg PO DAILY #5 tab 06/28/18 Sumatriptan [Imitrex] 25 mg PO ONCE PRN #7 ml 06/28/18 Benzonatate Perles [Tessalon Perles] 200 mg PO BID #20 cap 08/13/18 Cefuroxime Axetil [Ceftin] 500 mg PO Q12H 7 Days #14 tablet 08/13/18 Review of Systems - Review of Systems Constitutional: States: no symptoms reported EENTM: States: no symptoms reported Respiratory: States: no symptoms reported Cardiology: States: no symptoms reported Gastrointestinal/Abdominal: States: no symptoms reported Genitourinary: States: no symptoms reported Musculoskeletal: States: no symptoms reported Skin: States: see HPI Neurological: States: no symptoms reported Endocrine: States: no symptoms reported All other Systems: No Change from Baseline Past Medical History (General) - Patient Medical History Hx Seizures: No Hx Stroke: No Hx Dementia: No Hx Asthma: No Hx of COPD: No Hx Cardiac Disorders: No Hx Congestive Heart Failure: No Hx Pacemaker: No Hx Hypertension: No Hx Thyroid Disease: No Hx Diabetes: No Hx Gastroesophageal Reflux: No Hx Renal Disease: No Hx Cancer: No Hx of HIV: No Hx Hepatitis C: No Hx MRSA: No - Vaccination History Hx Tetanus, Diphtheria Vaccination: No Hx Influenza Vaccination: No Hx Pneumococcal Vaccination: No - Social History Hx Tobacco Use: Yes Hx Chewing Tobacco Use: No Hx Alcohol Use: No Hx Substance Use: Yes Hx Substance Use Treatment: Yes Hx Depression: No Hx Physical Abuse: No Hx Emotional Abuse: No Hx Suspected Abuse: No Family Medical History - Family History Mother Family History: No Known Living Status: Still Living Physical Exam - Physical Exam General Appearance: Alert, Anxious Eye Exam: bilateral normal Ears, Nose, Throat: hearing grossly normal Neck: full range of motion Respiratory: no respiratory distress, no accessory muscle use Cardiovascular/Chest: normal peripheral pulses, no edema Peripheral Pulses: radial,right: 2+, radial,left: 2+ Rectal Exam: deferred Back Exam: other - Mild erythema but in the distribution of a sunburn rather than the distribution of a topical application. No blistering. No hives. 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 The patient's back was cleaned with Yuki soap and water. I do not see any evidence of any allergic reaction at this time. Based on the distribution of the mild redness, he likely applied this over a mild sunburn. Keep routine follow-up with primary care doctor. ER warnings are given. ruchi putnam [id number] Departure - Departure Clinical Impression: Medication adverse effect Qualifiers: Encounter type: initial encounter Qualified Code(s): T50.905A - Adverse effect of unspecified drugs, medicaments and biological substances, initial encounter Disposition: Discharge to Home or Self Care Condition: Fair Departure Forms: ED Discharge - Pt. Copy, Patient Portal Self Enrollment Diet: regular diet Activity: increase activity as tolerated Home Medications: Ambulatory Orders Ibuprofen [Motrin Tab] 600 mg PO TID PRN #15 tab 11/10/15 Amoxicillin & Pot Clavulanate [Augmentin Tab] 875 mg PO BID #20 tab 06/28/18 Prednisone [Deltasone] 20 mg PO DAILY #5 tab 06/28/18 Sumatriptan [Imitrex] 25 mg PO ONCE PRN #7 ml 06/28/18 Benzonatate Perles [Tessalon Perles] 200 mg PO BID #20 cap 08/13/18 Cefuroxime Axetil [Ceftin] 500 mg PO Q12H 7 Days #14 tablet 08/13/18 Additional Instructions: The patient is a 19-year-old male presented emergency room secondary to a burning sensation caused by generic icey hot. The patient's back was cleaned with Yuki soap and water. I do not see any evidence of any allergic reaction at this time. Based on the distribution of the mild redness, he likely applied this over a mild sunburn. Keep routine follow-up with primary care doctor. ER warnings are given.
[2019-12-06 04:14] VITALS: BP 122/79; TEMP 97.9; O2SAT 100
== END 2019-12-06 04:08 | disposition home or self-care (01) ==
LOC: ER 03:41
DX: T50.905A Adverse effect of unspecified drugs, medicaments and biological substances, initial encounter (principal); F17.200 Nicotine dependence, unspecified, uncomplicated; Y92.9 Unspecified place or not applicable